=== PATIENT | female | born 1970 | race Caucasian/White ===

== ENCOUNTER 2019-09-25 11:07 | Inpatient (IN) | payer BC ==
[~2019-09-25] VITALS: Ht 160 cm; Wt 49.9 kg
[2019-09-25 11:18] VITALS: Ht 160 cm; Wt 49.9 kg
[2019-09-25 11:51] LABS: PLATELET COUNT 233 x10^3mcL (130-400); RED CELL DISTRIBUTION WIDTH 12.2 % (11.5-14.5)
[2019-09-25 11:52] LABS: BASOPHIL % 0 % (0-2)
[2019-09-25 12:17] LABS: CALCIUM 9.6 mg/dL (8.5-10.1); CARBON DIOXIDE 27.4 mmol/L (21-32); CHLORIDE SERUM 100 mmol/L (98-107); CREATININE SERUM 0.8 mg/dL (0.6-1.0); GFR1 > 60 mL/min; GLUCOSE SERUM 81 mg/dL (74-106); SODIUM SERUM 140 mmol/L (136-145)
[2019-09-25 12:22] LABS: ALBUMIN 4.3 g/dL (3.4-5.0); ALKALINE PHOSPHATASE 51 U/L (46-116); ALT/SGPT 69 U/L (14-59); AST/SGOT 181 U/L (15-37); BILIRUBIN TOTAL 1.1 mg/dL (0.20-1.00); CHOLESTEROL 170 mg/dL (<200); TOTAL PROTEIN, SERUM 7.8 g/dL (6.4-8.2)
[2019-09-25 14:52] LABS: CHOLESTEROL/HDL RATIO 2.6
[2019-09-25] MEDS ORDERED: VRAYLAR4.5 MG PO ×2 (15:17→16:07)
[2019-09-25] MEDS ORDERED: ZYPREXA10 M1 PO (16:07)
[2019-09-25] MEDS ORDERED: HALDOL IM (16:09)
[2019-09-25 17:34] VITALS: BP 123/81
[2019-09-25 22:48] VITALS: BP 121/81
[2019-09-26 06:07] LABS: BASOPHIL % 0.2 % (0-2); PLATELET COUNT 266 x10^3mcL (130-400)
[2019-09-26 06:47] LABS: ALBUMIN 4.3 g/dL (3.4-5.0); ALKALINE PHOSPHATASE 50 U/L (46-116); ALT/SGPT 220 U/L (14-59); AST/SGOT 576 U/L (15-37); BILIRUBIN TOTAL 1.2 mg/dL (0.20-1.00); CALCIUM 9.8 mg/dL (8.5-10.1); CARBON DIOXIDE 22.7 mmol/L (21-32); CHLORIDE SERUM 101 mmol/L (98-107); CREATININE SERUM 0.9 mg/dL (0.6-1.0); GFR1 > 60 mL/min; GLUCOSE SERUM 121 mg/dL (74-106); MAGNESIUM 2.1 mg/dL (1.8-2.4); POTASSIUM SERUM 3.5 mmol/L (3.5-5.1); SODIUM SERUM 141 mmol/L (136-145); TOTAL PROTEIN, SERUM 7.7 g/dL (6.4-8.2)
[2019-09-26 07:13] VITALS: BP 120/86
[2019-09-26 09:06] VITALS: BP 145/117
[2019-09-26 14:06] VITALS: BP 132/67
[2019-09-26 20:30] VITALS: BP 123/67
[2019-09-27 06:00] VITALS: BP 132/65
[2019-09-27 06:00] LABS: BASOPHIL % 0.8 % (0-2); PLATELET COUNT 207 x10^3mcL (130-400); RED CELL DISTRIBUTION WIDTH 12.2 % (11.5-14.5)
[2019-09-27 06:16] LABS: ALKALINE PHOSPHATASE 37 U/L (46-116); ALT/SGPT 147 U/L (14-59); AST/SGOT 247 U/L (15-37); BILIRUBIN TOTAL 0.67 mg/dL (0.20-1.00); CALCIUM 8.4 mg/dL (8.5-10.1); CARBON DIOXIDE 25.8 mmol/L (21-32); CHLORIDE SERUM 110 mmol/L (98-107); CREATININE SERUM 0.6 mg/dL (0.6-1.0); GFR1 > 60 mL/min; GLUCOSE SERUM 94 mg/dL (74-106); PHOSPHOROUS 3.5 mg/dL (2.5-4.9); POTASSIUM SERUM 3.1 mmol/L (3.5-5.1); SODIUM SERUM 145 mmol/L (136-145)
[2019-09-27 06:28] LABS: TOTAL PROTEIN, SERUM 5.4 g/dL (6.4-8.2)
[2019-09-27 06:29] LABS: ALBUMIN 2.9 g/dL (3.4-5.0)
[2019-09-27 07:22] VITALS: BP 144/93
[2019-09-27 16:10] LABS: AMPHETAMINE QUAL UR NONE DETECTED (See below)
[2019-09-27 18:25] VITALS: BP 151/81
[2019-09-27 21:19] VITALS: BP 137/72
[2019-09-28 06:37] LABS: BASOPHIL % 0.5 % (0-2); PLATELET COUNT 206 x10^3mcL (130-400); RED CELL DISTRIBUTION WIDTH 12.1 % (11.5-14.5)
[2019-09-28 06:48] LABS: CALCIUM 8.7 mg/dL (8.5-10.1); CHLORIDE SERUM 108 mmol/L (98-107); CREATININE SERUM 0.6 mg/dL (0.6-1.0); GFR1 > 60 mL/min; GLUCOSE SERUM 96 mg/dL (74-106); SODIUM SERUM 145 mmol/L (136-145)
[2019-09-28 06:55] LABS: POTASSIUM SERUM 2.9 mmol/L (3.5-5.1)
[2019-09-28 10:00] VITALS: BP 161/99
[2019-09-28 17:30] VITALS: BP 125/75
[2019-09-28 21:30] VITALS: BP 156/96
[2019-09-29 06:10] LABS: BASOPHIL % 0.2 % (0-2); PLATELET COUNT 236 x10^3mcL (130-400); RED CELL DISTRIBUTION WIDTH 12.6 % (11.5-14.5)
[2019-09-29 06:25] VITALS: BP 150/78
[2019-09-29 06:34] LABS: CALCIUM 9.7 mg/dL (8.5-10.1); CARBON DIOXIDE 29.3 mmol/L (21-32); CHLORIDE SERUM 107 mmol/L (98-107); CREATININE SERUM 0.7 mg/dL (0.6-1.0); GFR1 > 60 mL/min; GLUCOSE SERUM 99 mg/dL (74-106); SODIUM SERUM 145 mmol/L (136-145)
[2019-09-29 06:46] LABS: POTASSIUM SERUM 5.6 mmol/L (3.5-5.1)
[2019-09-29 07:08] VITALS: BP 131/67
[2019-09-29 09:00] VITALS: BP 122/64
[2019-09-29 13:00] VITALS: BP 128/70
[2019-09-29 20:17] VITALS: BP 131/90
[2019-09-30 05:45] VITALS: BP 121/59
[2019-09-30 06:29] LABS: BASOPHIL % 0.4 % (0-2); PLATELET COUNT 239 x10^3mcL (130-400); RED CELL DISTRIBUTION WIDTH 12.3 % (11.5-14.5)
[2019-09-30 06:39] LABS: CALCIUM 9.3 mg/dL (8.5-10.1); CHLORIDE SERUM 104 mmol/L (98-107); CREATININE SERUM 0.6 mg/dL (0.6-1.0); GFR1 > 60 mL/min; GLUCOSE SERUM 113 mg/dL (74-106); POTASSIUM SERUM 3.3 mmol/L (3.5-5.1); SODIUM SERUM 142 mmol/L (136-145)
[2019-09-30 08:35] VITALS: BP 111/65
[2019-09-30 15:45] VITALS: BP 155/76
[2019-09-30 20:30] VITALS: BP 143/86
[2019-10-01 06:08] VITALS: BP 134/84
[2019-10-01 06:27] LABS: BASOPHIL % 0.3 % (0-2); PLATELET COUNT 295 x10^3mcL (130-400); RED CELL DISTRIBUTION WIDTH 12.4 % (11.5-14.5)
[2019-10-01 07:11] LABS: CALCIUM 9.9 mg/dL (8.5-10.1); CARBON DIOXIDE 29.2 mmol/L (21-32); CHLORIDE SERUM 103 mmol/L (98-107); CREATININE SERUM 0.6 mg/dL (0.6-1.0); GFR1 > 60 mL/min; GLUCOSE SERUM 104 mg/dL (74-106); POTASSIUM SERUM 3.7 mmol/L (3.5-5.1); SODIUM SERUM 141 mmol/L (136-145)
[2019-10-01 08:50] VITALS: BP 92/53
[2019-10-01 13:06] VITALS: BP 122/69
[2019-10-01 17:40] VITALS: BP 130/77
[2019-10-01 17:41] VITALS: BP 132/44
[2019-10-02 05:03] VITALS: BP 122/73
[2019-10-02 06:47] LABS: CALCIUM 9.4 mg/dL (8.5-10.1); CARBON DIOXIDE 27.7 mmol/L (21-32); CHLORIDE SERUM 105 mmol/L (98-107); CREATININE SERUM 0.7 mg/dL (0.6-1.0); GFR1 > 60 mL/min; GLUCOSE SERUM 110 mg/dL (74-106); POTASSIUM SERUM 3.9 mmol/L (3.5-5.1); SODIUM SERUM 142 mmol/L (136-145)
[2019-10-02 06:50] LABS: BASOPHIL % 0.5 % (0-2); PLATELET COUNT 296 x10^3mcL (130-400); RED CELL DISTRIBUTION WIDTH 12.7 % (11.5-14.5)
[2019-10-02 08:10] VITALS: BP 111/78
[2019-10-02 12:26] VITALS: BP 96/54
[2019-10-03 04:45] VITALS: BP 136/76
[2019-10-03 09:14] VITALS: BP 129/74
[2019-10-03 13:41] VITALS: BP 134/54
[2019-10-03 17:20] VITALS: BP 133/78
[2019-10-03 21:13] VITALS: BP 110/63
[2019-10-04 05:49] VITALS: BP 121/67
[2019-10-04 09:00] VITALS: BP 138/83
[2019-10-04 13:33] VITALS: BP 138/79
[2019-10-04 19:21] VITALS: BP 127/76
[2019-10-04 20:28] VITALS: BP 141/87
[2019-10-05 05:42] VITALS: BP 158/79
[2019-10-05 07:34] VITALS: BP 138/85
[2019-10-05 11:58] VITALS: BP 119/76
[2019-10-05 16:02] VITALS: BP 119/76
[2019-10-05] MEDS ORDERED: LOP50 PO (16:03)
[2019-10-05 16:55] VITALS: BP 135/77
== END 2019-10-05 16:53 | DRG 280 ==
LOC: ED 11:07 → DU 13:58 → MU 09-29 16:52
PROVIDERS: Specialist; Student in an Organized Health Care Education/Training Program; ADMIT Family Medicine
DX: I21.4 Non-ST elevation (NSTEMI) myocardial infarction (principal); G93.41 Metabolic encephalopathy; M62.82 Rhabdomyolysis; Z68.1 Body mass index [BMI] 19.9 or less, adult; F25.9 Schizoaffective disorder, unspecified; R74.0 Nonspecific elevation of levels of transaminase and lactic acid dehydrogenase [LDH]; E80.6 Other disorders of bilirubin metabolism; Z79.82 Long term (current) use of aspirin
CPT/HCPCS: 36600; 83880; 97116-GP; 97530-GP; G0378; G0480; J1630; J1644; J2060; J2405; J3480; J3486; J7030; J7050; Q0092; Q9967